=== PATIENT | female | born 1960 | race Hispanic/Latino ===

== ENCOUNTER 2024-08-16 23:01 | Emergency (ER) | payer MEDICARE, OTHER ==
[2024-08-16] MEDS ORDERED: Acetaminophen 500 MG TAB ONE (23:21)
== END 2024-08-17 00:16 | disposition home or self-care (01) ==
LOC: BURERS 23:01
DX: S20.219A Contusion of unspecified front wall of thorax, initial encounter (principal); V43.52XA Car driver injured in collision with other type car in traffic accident, initial encounter; Y93.89 Activity, other specified
CPT/HCPCS: 71045